=== PATIENT | female | born 1970 | race Caucasian/White ===

== ENCOUNTER 2021-07-19 14:48 | Emergency (ER) | payer OTHER, SELFPAY ==
[~2021-07-19] VITALS: Ht 157.5 cm; Wt 80.7 kg
[2021-07-19 14:49] VITALS: BP 190/88
[2021-07-20] MEDS ORDERED: IBUP-1764 PO (00:02)
== END 2021-07-19 17:00 | disposition left against medical advice (07) ==
LOC: M ED 14:48
DX: Z53.29 Procedure and treatment not carried out because of patient's decision for other reasons (principal)

== ENCOUNTER 2021-07-19 19:41 | Inpatient (IN) | payer BC, OTHER ==
[~2021-07-19] VITALS: Ht 157.5 cm; Wt 84.5 kg
[2021-07-19 23:24] VITALS: BP 154/77
[2021-07-20] MEDS ORDERED: IBUP-1764 PO (00:02)
[2021-07-20] MEDS ORDERED: HOME MED LIST COMPLETE! XX SCH (00:05)
[2021-07-20] MEDS ORDERED: GLUCOSE 4GM CHEW TABLET PO PRN (00:30)
[2021-07-20] MEDS ORDERED: DEXTROSE 50% 50 ML SYRINGE IV PRN (00:30)
[2021-07-20] MEDS ORDERED: VANCOMYCIN HCL 1,000 MG, VIAL MATE ADAPTER 1 EACH in NS 250 ML IV SCH (00:30)
[2021-07-20] MEDS ORDERED: D5W/0.45% SODIUM CHLORIDE 1,000 ML IV SCH (00:30)
[2021-07-20] MEDS ORDERED: GLUCAGON INJ 1MG VIAL SC PRN (00:30)
[2021-07-20] MEDS ORDERED: MAALOX 30 ML SUSP *UDC PO PRN (00:30)
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
[2021-07-20] MEDS: HumaLOG INSULIN (NovoLOG) PER UNIT SC SCH ×5 (01:57→23:31)
[2021-07-20] MEDS: ACETAMINOPHEN TAB 650MG DOSE (2X325MG) PO PRN ×2 (02:38→23:32)
[2021-07-20 03:22] LABS: BASO % 0.2 % (0.0-1.0); EOS % 0.2 % (0.0-3.0); HEMATOCRIT 31.9 % (36.0-47.0); HEMOGLOBIN 10.5 g/dl (12.0-15.5); LYMPH # 0.8 10^3/uL (1.5-5.0); LYMPH % 8.3 % (24.0-44.0); MEAN CORPUSCULAR HEMOGLOBIN 27.9 pg (27.0-33.0); MEAN CORPUSCULAR HGB CONC 32.9 g/dl (32.0-36.5); MEAN CORPUSCULAR VOLUME 84.8 fl (80.0-96.0); MONO # 0.7 10^3/uL (0.0-0.8); MONO % 7.9 % (2.0-8.0); NEUTROPHILS # 7.6 10^3/uL (1.5-8.5); NEUTROPHILS % 82.4 % (36.0-66.0); PLATELET COUNT, AUTOMATED 410 10^3/uL (150-450); RED BLOOD COUNT 3.76 10^6/uL (4.00-5.40); WHITE BLOOD COUNT 9.2 10^3/uL (4.0-10.0)
[2021-07-20 03:35] LABS: HEMOGLOBIN A1c 13.8 %
[2021-07-20] MEDS: VANCOMYCIN HCL 1,000 MG, VIAL MATE ADAPTER 1 EACH in NS 250 ML IV SCH ×3 (04:26→20:52)
[2021-07-20 04:27] LABS: BLOOD UREA NITROGEN 9 MG/DL (7-18); CALCIUM LEVEL 7.9 MG/DL (8.5-10.1); CARBON DIOXIDE LEVEL 30 MEQ/L (21-32); CHLORIDE LEVEL 98 MEQ/L (98-107); CREATININE FOR GFR 0.63 MG/DL (0.55-1.30); FERRITIN 803 NG/ML (8-252); GLOMERULAR FILTRATION RATE > 60.0 (>51); GLUCOSE, FASTING 236 MG/DL (70-100); IRON (FE) 23 UG/DL (50-170); PERCENT SATURATION 15.8 % (13.2-45.0); POTASSIUM SERUM 3.5 MEQ/L (3.5-5.1); SODIUM LEVEL 134 MEQ/L (136-145); TOTAL IRON BINDING CAPACITY 146 UG/DL (250-450)
[2021-07-20 06:00] VITALS: BP 121/70
[2021-07-20] MEDS: ONDANSETRON 4MG/2ML VIAL IV PRN (06:50)
[2021-07-20] MEDS ORDERED: FLUBLOK(EGG FREE)(QUAD)INFLUENZA VACC 0.5ML SYRINGE 18YRS & OLDER IM ONE (09:00)
[2021-07-20] MEDS: LEVEMIR (INSULIN DETEMIR) 1 UNITS/0.01ML SC SCH (09:57)
[2021-07-20] MEDS: ENOXAPARIN 40MG/0.4ML SYRINGE (J1650 PER 10MG) SC SCH (09:57)
--- NOTE | 2021-07-20 10:11 | IPNPDOC ---
Text Note Date of Service The patient was seen on 07/20/21. NOTE Subjective: Patient is a 51-year-old female with a PMHx gestational DM2, who presented as a transfer from [facility] ER with a 3 week history of pr ogressively worsening right foot wound/ulceration. Patient was admitted to the hospitalist service and podiatry was called on consultation this morning. Patient was seen and examined at the bedside. Currently, she denies any chest pain, shortness of breath, palpitations. Reports some nausea. Denies any abdominal discomfort. Reports constipation reported chills at home but has not experienced any fevers. Objective: Vitals (See below) General: Lying in bed, comfortable, AAOx3 HEENT: NC, AT CVS: +S1S2 Lungs: Fair air entry b/l, -w/r/r Abdomen: Soft, ND, NT Extremities: RLE with 1+ pitting edema, LLE without any edema, R foot with dressing in place Imagin07/19/2021 foot x-ray from outside hospital in chart Assessment and plan: Right foot ulcer - Patient has reported ongoing right foot wound for the last 3 weeks - Has not been on any antibiotics as an outpatient - No leukocytosis; CRP significantly elevated - MRSA screen positive - Will get MRI of R foot - c/w Vancomycin; Will add Zosyn - Consulted Podiatry; Case discussed with Dr. León Hyperglycemia - likely 2/2 new onset DM2 - A1c elevated at 13.8 - c/w ISS and Levemir RLE pitting edema - LLE without any significant edema - Will get Duplex US of RLE Normocytic anemia - Iron panel noted - Will star Ferrous sulfate Hyponatremia - likely 2/2 pseudohyponatremia 2/2 elevated glucose - Corrected Na of 135 Class 1 obesity - BMi of 33.2 - Complicating medical care DVT prophylaxis - c/w Lovenox Disposition: - Patient will have MRI completed today and will be evaluated by podiatry Piedad BENOIT, I+O Piedad BENOIT, I+O Laboratory Tests 07/20/21 03:10 Vital Signs Date Time Temp Pulse Resp B/P (MAP) Pulse Ox O2 Delivery O2 Flow Rate FiO2 07/20/21 06:00 99.0 85 18 121/70 (87) 95 Room Air I&O- Last 24 Hours up to 6 AM 07/20/21 06:00 Intake Total 0 ml Balance 0 ml SOURAV HAUSER MD Jul 20, 2021 10:11
[2021-07-20] MEDS: FERROUS SULFATE 325MG TAB PO SCH (11:22)
[2021-07-20] MEDS: PIPERACILLIN/TAZOBACTAM SOD 3.375 GM in D5W MINI-BAG PLUS 50 ML IV SCH ×3 (11:41→23:30)
--- NOTE | 2021-07-20 11:59 | CR ---
CONSULTATION DATE: 07/20/2021 REASON FOR CONSULTATION: Right heel ulcer. HISTORY OF PRESENT ILLNESS: Patsy Liz is a 51-year-old diabetic female who presents to [facility] as a transfer for [place] emergency department with a right heel wound. She estimates it has been present about three weeks. She is not exactly sure. She has numbness in her feet. PAST MEDICAL HISTORY: Significant for diabetes. PAST SURGICAL HISTORY: Inguinal hernia repair, tonsils and adenoids and a throat polyp removal. SOCIAL HISTORY: Denies tobacco and alcohol. FAMILY HISTORY: Positive for diabetes. ALLERGIES: No known drug allergies. REVIEW OF SYSTEMS: She denies nausea, vomiting, fever or chills. LABORATORY DATA: White blood cell count since being at the hospital is 9.2. CRP is 23.6. Hemoglobin A1c is 13.8. Lower extremity examination: On the right side, there is erythema and edema to the right foot and leg. There is a necrotic ulcer to the plantar surface of the heel with purulence within the wound. ASSESSMENT: This is a 51-year-old diabetic female with right heel ulceration, abscess and infection. PLAN: She is to go to the OR today for right heel debridement/incision and drainage. She is on vancomycin and Zosyn. We will take OR cultures.
--- NOTE | 2021-07-20 12:28 | REP ---
INDICATION: RLE swelling COMPARISON: None. TECHNIQUE: Real time compression and duplex Doppler interrogation of the right lower extremity deep venous system is performed, including the left common femoral vein.Compression of the right peroneal and posterior tibial veins is performed. FINDINGS: The right common femoral, superficial femoral and popliteal veins are fully compressible with transducer pressure and demonstrate normal spontaneous and phasic flow, without evidence of deep venous thrombosis.The left common femoral vein demonstrates no thrombus.The visualized right peroneal and posterior tibial veins demonstrate no thrombus. IMPRESSION: No evidence of deep venous thrombosis of the right lower extremity femoral popliteal venous system.The visualized right peroneal and posterior tibial veins demonstrate no thrombus. <Electronically signed by Britton Garcia > 07/20/21 [id number]
[2021-07-20 14:00] VITALS: BP 131/93
--- NOTE | 2021-07-20 14:50 | REP ---
INDICATION: osteomyelitis r/o. COMPARISON: None. TECHNIQUE: Multiple sequences obtained in the axial, coronal and sagittal planes. No IV contrast was administered. FINDINGS: Abnormal marrow signal seen in the posteroinferior calcaneus. There appears to be a large soft tissue ulcer in the adjacent heel. The remaining osseous structures of the right foot demonstrate no marrow signal abnormality. There is diffuse edema in the soft tissues of the foot with likely some associated cellulitis. Mild fluid is seen at the margins of the tibiotalar joint. Tiny amount of fluid is seen surrounding the tendons of the ankle, but there is not significant tenosynovitis. The tendons and ligaments of the ankle appear intact. IMPRESSION: Large ulceration of the soft tissues of the heel. There are findings compatible with osteomyelitis in the posteroinferior calcaneus. No discrete abscess collection is visualized. <Electronically signed by Britton Garcia > 07/20/21 [id number]
[2021-07-20] MEDS ORDERED: LIDOCAINE 2% 100MG/5ML SDV (FOR ANES.) As Ordered ONE (18:00)
[2021-07-20] MEDS ORDERED: ONDANSETRON 4MG/2ML VIAL As Ordered ONE (18:00)
[2021-07-20] MEDS ORDERED: propofoL 200 MG/20 ML VIAL As Ordered ONE (18:00)
[2021-07-20] MEDS ORDERED: MIDAZOLAM INJ 2MG/2ML VIAL (J2250 PER 1MG) As Ordered ONE (18:00)
[2021-07-20] MEDS ORDERED: fentaNYL 100 MCG/2 ML INJECTION (J3010) As Ordered ONE (18:00)
[2021-07-20] MEDS ORDERED: dexameTHASONE 4 MG/ML 1ML VIAL (J1100 PER 1MG) As Ordered ONE (18:00)
[2021-07-20] MEDS ORDERED: BUPIVACAINE HCL 0.5% 10ML VIAL As Ordered ONE (18:03)
[2021-07-20] MEDS ORDERED: LIDOCAINE 1% MDV 20ML VIAL As Ordered ONE (18:03)
[2021-07-20] MEDS ORDERED: ZOSYN 3.375GM VIAL (J2543) As Ordered ONE (18:13)
[2021-07-20] MEDS ORDERED: ONDANSETRON 4MG/2ML VIAL IV PRN (19:50)
[2021-07-20] MEDS ORDERED: LR 1,000 ML IV SCH (19:50)
[2021-07-20] MEDS ORDERED: fentaNYL 100 MCG/2 ML INJECTION (J3010) IV PRN (19:50)
[2021-07-20] MEDS ORDERED: oxyCODONE 5MG TAB PO PRN (19:50)
--- NOTE | 2021-07-20 19:50 | RO ---
OPERATIVE NOTE DATE OF OPERATION: 07/20/2021 PREOPERATIVE DIAGNOSIS: Right heel necrotic ulcer and infection. POSTOPERATIVE DIAGNOSIS: Right heel necrotic ulcer and infection. PROCEDURE: Right heel incision, drainage, and wound debridement. SURGEON: Harshad León DPM [employer]OL FINANCE OFFICER: None. ANESTHESIA: Monitored anesthesia care. PREOPERATIVE INJECTION(S): 20 mL of 1:1 mixture of 1% Lidocaine plain and 0.5% Marcaine plain. ESTIMATED BLOOD LOSS: 50 mL. MATERIALS: None. SPECIMENS: Right heel wound tissue, aerobic and anaerobic cultures. COMPLICATIONS: None. CONDITION: Stable. INDICATIONS FOR PROCEDURE: Patsy Liz is a 51-year-old female who was admitted with a right heel ulceration. The wound was inspected and found to have significant necrotic tissue, erythema, and purulence. The decision was made to bring her to the operating room for operative debridement. DESCRIPTION OF PROCEDURE: The patient, side, and site were identified and marked in the preoperative area. Consent was reviewed and obtained. The risks, complications, and alternatives to the procedure were explained to the patient in detail, and all questions were answered. The patient was brought to the operating on a stretcher in the supine position. Monitored anesthesia care was delivered by the anesthesia team. A preop injection of 20 mL of a 1:1 mixture of 1% Lidocaine plain and 0.5% Marcaine plain was instilled. No tourniquet was applied during the procedure. The wound was inspected. There was black necrotic tissue on the plantar surface of the heel with local erythema and purulence extending distally and proximally. Using a #10 blade, the wound tissue was excised in an excisional fashion including subcutaneous tissue, fat, and fascia. Rongeur was used to remove further nonviable tissue. With tracking along the superior fascia an incision was made along the plantar surface of the arch. Following this, 3000 mL of pulse lavage irrigation fluid was irrigated through the wound. Once no further significant necrotic tissue was noted, the site was packed with saline gauze. The patient was brought to the PACU with vital signs stable and neurovascular status intact. She will be admitted to the floor for continued antibiotics and wound care.
[2021-07-20 20:40] VITALS: BP 136/90
[2021-07-20 21:10] VITALS: BP 140/88
[2021-07-20 22:00] VITALS: BP 138/75
[2021-07-21] VITALS (7 sets, daily range): BP systolic 118–172; BP diastolic 64–93
[2021-07-21] MEDS: VANCOMYCIN HCL 1,000 MG, VIAL MATE ADAPTER 1 EACH in NS 250 ML IV SCH ×2 (03:40→15:26)
[2021-07-21] MEDS: HumaLOG INSULIN (NovoLOG) PER UNIT SC SCH ×4 (05:17→23:41)
[2021-07-21] MEDS: PIPERACILLIN/TAZOBACTAM SOD 3.375 GM in D5W MINI-BAG PLUS 50 ML IV SCH ×4 (05:18→23:41)
[2021-07-21 08:13] LABS: BASO % 0.2 % (0.0-1.0); HEMATOCRIT 28.2 % (36.0-47.0); HEMOGLOBIN 9.5 g/dl (12.0-15.5); LYMPH # 0.6 10^3/uL (1.5-5.0); LYMPH % 4.4 % (24.0-44.0); MEAN CORPUSCULAR HEMOGLOBIN 28.4 pg (27.0-33.0); MEAN CORPUSCULAR HGB CONC 33.7 g/dl (32.0-36.5); MEAN CORPUSCULAR VOLUME 84.4 fl (80.0-96.0); MONO # 0.8 10^3/uL (0.0-0.8); MONO % 6.1 % (2.0-8.0); NEUTROPHILS # 11.8 10^3/uL (1.5-8.5); NEUTROPHILS % 88.3 % (36.0-66.0); PLATELET COUNT, AUTOMATED 398 10^3/uL (150-450); RED BLOOD COUNT 3.34 10^6/uL (4.00-5.40); WHITE BLOOD COUNT 13.4 10^3/uL (4.0-10.0)
[2021-07-21 08:27] LABS: BLOOD UREA NITROGEN 9 MG/DL (7-18); CARBON DIOXIDE LEVEL 28 MEQ/L (21-32); CHLORIDE LEVEL 100 MEQ/L (98-107); CREATININE FOR GFR 0.92 MG/DL (0.55-1.30); GLOMERULAR FILTRATION RATE > 60.0 (>51); GLUCOSE, FASTING 187 MG/DL (70-100); POTASSIUM SERUM 3.4 MEQ/L (3.5-5.1); SODIUM LEVEL 137 MEQ/L (136-145)
[2021-07-21] MEDS ORDERED: POTASSIUM CHLORIDE 10MEQ SR TABLET PO ONE (10:00)
[2021-07-21] MEDS: ENOXAPARIN 40MG/0.4ML SYRINGE (J1650 PER 10MG) SC SCH (10:39)
[2021-07-21] MEDS: LEVEMIR (INSULIN DETEMIR) 1 UNITS/0.01ML SC SCH (10:40)
[2021-07-21] MEDS: FERROUS SULFATE 325MG TAB PO SCH (10:41)
--- NOTE | 2021-07-21 11:35 | IPNPDOC ---
Text Note Date of Service The patient was seen on 07/21/21. NOTE Subjective: Patient is a 51-year-old female with a PMHx gestational DM2, who presented as a transfer from [facility] ER with a 3 week history of pr ogressively worsening right foot wound/ulceration. Patient was admitted to the hospitalist service and podiatry was called on consultation this morning. Patient was seen and examined at the bedside. Patient was that she feels better today. She denies any chest pain, shortness of breath or palpitations. Has reported some nausea yesterday but has resolved today. Has not spent any abdominal pain. Reported that she has had a bowel movement this morning. Objective: Vitals (See below) General: Lying in bed, comfortable, AAOx3 HEENT: NC, AT CVS: +S1S2 Lungs: Fair air entry b/l, no evidence of wheezing, rales or rhonchi Abdomen: Soft, nondistended, nontender Extremities: Right lower extremity with evidence of edema; right foot with dressing in place Imagin07/19/2021 foot x-ray from outside hospital in chart MRI 07/20: Large ulceration of the soft tissues of the heel. There are findings compatible with osteomyelitis in the posteroinferior calcaneus. No discrete abscess collection is visualized. Vascular US 07/20: No evidence of deep venous thrombosis of the right lower extremity femoral popliteal venous system.The visualized right peroneal and posterior tibial veins demonstrate no thrombus. Assessment and plan: Right foot ulcer; without surgical evidence of osteomyelitis - Patient has reported ongoing right foot wound for the last 3 weeks - Patient had a febrile episode yesterday. However, remains afebrile since that point - Has remained hemodynamically stable - Leukocytosis noted this morning; CRP improving - Cultures pending - MRSA screen positive - Imaging noted above - s/p Right heel incision, drainage, and wound debridement with Dr. León on 07/20/2021 - c/w Vancomycin & Zosyn (Day #2) - Podiatry on consultation; appreciate their input Hyperglycemia - likely 2/2 new onset DM2 - A1c elevated at 13.8 - c/w ISS and Levemir RLE pitting edema - LLE without any significant edema - Duplex US of RLE without evidence of clot Normocytic anemia - Iron panel noted - c/w Ferrous sulfate s/p Hyponatremia - likely 2/2 pseudohyponatremia 2/2 elevated glucose Class 1 obesity - BMI of 33.2 - Complicating medical care DVT prophylaxis - c/w Lovenox Disposition: - Awaiting clinical improvement Piedad BENOIT, I+O Piedad BENOIT I+O Laboratory Tests 07/21/21 07:03 Vital Signs Date Time Temp Pulse Resp B/P (MAP) Pulse Ox O2 Delivery O2 Flow Rate FiO2 07/21/21 10:00 98.3 86 16 146/76 (99) 94 Room Air I&O- Last 24 Hours up to 6 AM 07/21/21 06:00 Intake Total 2290 ml Output Total 1575 ml Balance 715 ml SOURAV HAUSER MD Jul 21, 2021 11:35
--- NOTE | 2021-07-21 17:00 | IPN ---
PROGRESS NOTE DATE: 07/21/2021 SUBJECTIVE: The patient is seen and examined at the bedside. She denies overnight complaints. She states a little soreness in her foot. OBJECTIVE: PHYSICAL EXAMINATION: VITAL SIGNS: Vitals are reviewed. She has remained afebrile. EXTREMITIES: Lower extremity examination - erythema and edema are somewhat improved. Wound base is improved. There is some remaining necrotic tissue on the periphery. LABORATORY STUDIES: Labs are reviewed. White blood cell count is 13.4, CRP is 18.5. Gram stain shows gram positive cocci in chains and gram negative rods. Full culture results are pending. Pathology is pending. ASSESSMENT: A 51-year-old female with cellulitis, abscess, osteomyelitis right foot. PLAN: 1. We will plan for a wound consult with Dr. Marquis. 2. Continue empiric antibiotics. 3. Start with Vashe and Hydrofera Blue dressings for now. 4. Heel flow boot ordered.
[2021-07-21] MEDS ORDERED: LOMOTIL 2.5MG/0.025MG TABLET PO ONE (19:35)
[2021-07-21] MEDS: ACETAMINOPHEN TAB 650MG DOSE (2X325MG) PO PRN (21:12)
[2021-07-22] MEDS: VANCOMYCIN HCL 1,000 MG, VIAL MATE ADAPTER 1 EACH in NS 250 ML IV SCH (03:12)
[2021-07-22] MEDS: PIPERACILLIN/TAZOBACTAM SOD 3.375 GM in D5W MINI-BAG PLUS 50 ML IV SCH ×4 (04:53→23:50)
[2021-07-22 06:00] VITALS: BP 133/60
[2021-07-22 06:26] LABS: BASO % 0.3 % (0.0-1.0); EOS # 0.1 10^3/uL (0.0-0.5); EOS % 0.6 % (0.0-3.0); HEMATOCRIT 27.1 % (36.0-47.0); HEMOGLOBIN 8.7 g/dl (12.0-15.5); LYMPH # 1.3 10^3/uL (1.5-5.0); LYMPH % 13.1 % (24.0-44.0); MEAN CORPUSCULAR HEMOGLOBIN 27.9 pg (27.0-33.0); MEAN CORPUSCULAR HGB CONC 32.1 g/dl (32.0-36.5); MEAN CORPUSCULAR VOLUME 86.9 fl (80.0-96.0); MONO % 9.9 % (2.0-8.0); NEUTROPHILS # 7.7 10^3/uL (1.5-8.5); NEUTROPHILS % 75.1 % (36.0-66.0); PLATELET COUNT, AUTOMATED 421 10^3/uL (150-450); RED BLOOD COUNT 3.12 10^6/uL (4.00-5.40); WHITE BLOOD COUNT 10.2 10^3/uL (4.0-10.0)
[2021-07-22] MEDS: HumaLOG INSULIN (NovoLOG) PER UNIT SC SCH ×4 (06:26→23:55)
[2021-07-22 06:36] LABS: C REACTIVE PROTEIN QUANTITATIV 14.5 MG/DL (0.00-0.30); CALCIUM LEVEL 7.6 MG/DL (8.5-10.1); GLOMERULAR FILTRATION RATE 27.7 (>51); POTASSIUM SERUM 3.3 MEQ/L (3.5-5.1)
[2021-07-22] MEDS ORDERED: POTASSIUM CHLORIDE 10MEQ SR TABLET PO ONE (07:30)
[2021-07-22] MEDS: FERROUS SULFATE 325MG TAB PO SCH (07:58)
[2021-07-22] MEDS: NS 1,000 ML IV SCH ×2 (07:58→23:50)
[2021-07-22] MEDS: LACTOBACILLUS ACIDOPHILUS CAP (BACID) PO SCH ×2 (07:58→18:00)
[2021-07-22] MEDS: ONDANSETRON 4MG/2ML VIAL IV PRN ×2 (07:59→16:29)
[2021-07-22] MEDS: ENOXAPARIN 40MG/0.4ML SYRINGE (J1650 PER 10MG) SC SCH ×2 (07:59→08:20)
[2021-07-22] MEDS: LEVEMIR (INSULIN DETEMIR) 1 UNITS/0.01ML SC SCH (08:37)
--- NOTE | 2021-07-22 10:03 | IPNPDOC ---
Text Note Date of Service The patient was seen on 07/22/21. NOTE Subjective: Patient is a 51-year-old female with a PMHx gestational DM2, who presented as a transfer from [facility] ER with a 3 week history of p rogressively worsening right foot wound/ulceration. Patient was admitted to the hospitalist service and podiatry was called on consultation this morning. Patient was seen and examined at the bedside. Patient denies any chest pain, shortness breath, palpitations, reported nausea yesterday that has since resolved. Denies any abdominal discomfort. Yesterday had reported diarrhea today. She has not had any further bowel movements. Patient was that her foot feels relatively fine. Objective: Vitals (See below) General: Patient is sitting up in bed, appears to be comfortable, not in any acute distress, alert and oriented 3 HEENT: Normocephalic and atraumatic CVS: +S1S2 Lungs: Air entry appears to be fair bilaterally without any evidence of Abdomen: Remains soft without any distention or tenderness Extremities: Right lower extremity still reveals some edema, right foot dressing in place Imagin07/19/2021 foot x-ray from outside hospital in chart MRI 07/20: Large ulceration of the soft tissues of the heel. There are findings compatible with osteomyelitis in the posteroinferior calcaneus. No discrete abscess collection is visualized. Vascular US 07/20: No evidence of deep venous thrombosis of the right lower extremity femoral popliteal venous system.The visualized right peroneal and posterior tibial veins demonstrate no thrombus. Assessment and plan: Right foot ulcer; without surgical evidence of osteomyelitis - Patient has reported ongoing right foot wound for the last 3 weeks - Hemodynamically stable / Remains afebrile for 24 hours - Leukocytosis / CRP trending down - Blood cultures 07/20: No growth at 24 hours - Wound cultures 07/20: Strep agalactiae Group B / Providencia Stuarti - MRSA screen positive - Imaging noted above - s/p Right heel incision, drainage, and wound debridement with Dr. León on 07/20/2021 - c/w Vancomycin & Zosyn (Day #3) - Podiatry on consultation; appreciate their input - Will consult infectious disease about adjustment of antibiotics - c/w PT evaluation LANDON - possibly 2/2 pre-renal etiology (2/2 diarrhea), possibly 2/2 intra-renal etiology (2/2 medications 2/2 vancomycin) - Patient's kidney function has increased to 2.0 upfront baseline of 0.6 - Will check urinalysis, urine electrolytes, renal ultrasound - Will avoid nephrotoxic medications - Will start IV fluid hydration Hyperglycemia - likely 2/2 new onset DM2 - A1c elevated at 13.8 - c/w ISS and Levemir RLE pitting edema - LLE without any significant edema - Duplex US of RLE without evidence of clot Normocytic anemia - Iron panel noted - c/w Ferrous sulfate s/p Hyponatremia - likely 2/2 pseudohyponatremia 2/2 elevated glucose Class 1 obesity - BMI of 33.2 - Complicating medical care DVT prophylaxis - c/w Lovenox Disposition: - Awaiting clinical improvement VSPiedad I+O VSPiedad I+O Laboratory Tests 07/22/21 05:48 Vital Signs Date Time Temp Pulse Resp B/P (MAP) Pulse Ox O2 Delivery O2 Flow Rate FiO2 07/22/21 06:00 98.7 88 18 133/60 (84) 95 Room Air I&O- Last 24 Hours up to 6 AM 07/22/21 06:00 Intake Total 1280 ml Output Total 400 ml Balance 880 ml SOURAV HAUSER MD Jul 22, 2021 10:03
[2021-07-22 14:00] VITALS: BP 146/71
--- NOTE | 2021-07-22 15:14 | REP ---
INDICATION: LANDON. COMPARISON: None. TECHNIQUE: Real-time sonographic evaluation of the kidneys is performed. FINDINGS: Renal cortical echogenicity pattern is normal bilaterally and contours are smooth. There is no evidence of hydronephrosis, cyst, mass, or calculus in either kidney. Mildly prominent renal pelvis is noted bilaterally, without caliceal dilatation. The right kidney measures 11.9 x 5.7 x 5.4 cm. Left renal dimensions are 13.1 x 5.6 x 6.7 cm. The urinary bladder is unremarkable. Ureteral jets are not visualized in the urinary bladder with Doppler color evaluation. IMPRESSION: Negative renal ultrasound. <Electronically signed by Britton Garcia > 07/22/21 [id number]
[2021-07-22 17:21] LABS: APPEARANCE, URINE HAZY (CLEAR); BACTERIA, URINE AUTO NEGATIVE (NEGATIVE); BILIRUBIN, URINE AUTO NEGATIVE (NEGATIVE); BLOOD, URINE BLOOD 1+ (NEGATIVE); COLOR, URINE STRAW (YELLOW); GLUCOSE, URINE (UA) AUTO NEGATIVE (NEGATIVE); KETONE, URINE AUTO NEGATIVE (NEGATIVE); LEUKOCYTE ESTERASE, URINE AUTO NEGATIVE (NEGATIVE); NITRITE, URINE AUTO NEGATIVE (NEGATIVE); PROTEIN, URINE AUTO 1+ mg/dL (NEGATIVE); RBC, URINE AUTO 1 /HPF (0-3); SPECIFIC GRAVITY URINE AUTO 1.004 (1.002-1.035); SQUAMOUS EPITHELIAL CELL UR AU 1 /HPF (0-6); UROBILINOGEN, URINE AUTO 0.2 mg/dL (0.0-2.0); WBC, URINE AUTO 4 /HPF (0-3)
[2021-07-22 17:29] LABS: CREATININE,RANDOM URINE 39.7 MG/DL; SODIUM,RANDOM URINE 19 MEQ/L
[2021-07-22 17:46] LABS: OSMOLALITY URINE 104 MOSM/KG (50-1400)
[2021-07-22] MEDS: METOCLOPRAMIDE INJ 10MG/2ML VIAL (J2765 PER 1) IV PRN (18:17)
[2021-07-22 19:59] LABS: CALCIUM LEVEL 8.1 MG/DL (8.5-10.1); CREATININE FOR GFR 2.27 MG/DL (0.55-1.30); PHOSPHORUS LEVEL 3.9 MG/DL (2.5-4.9); POTASSIUM SERUM 3.9 MEQ/L (3.5-5.1)
[2021-07-22 22:00] VITALS: BP 162/82
[2021-07-23] MEDS: METOCLOPRAMIDE INJ 10MG/2ML VIAL (J2765 PER 1) IV PRN ×3 (04:28→23:13)
[2021-07-23] MEDS: HumaLOG INSULIN (NovoLOG) PER UNIT SC SCH ×3 (05:48→19:02)
[2021-07-23] MEDS: PIPERACILLIN/TAZOBACTAM SOD 3.375 GM in D5W MINI-BAG PLUS 50 ML IV SCH ×4 (05:48→23:13)
[2021-07-23 06:00] VITALS: BP 160/84
[2021-07-23 07:04] LABS: BASO % 0.3 % (0.0-1.0); EOS % 0.3 % (0.0-3.0); HEMATOCRIT 25.2 % (36.0-47.0); HEMOGLOBIN 8.2 g/dl (12.0-15.5); LYMPH # 0.9 10^3/uL (1.5-5.0); LYMPH % 10.3 % (24.0-44.0); MEAN CORPUSCULAR HEMOGLOBIN 28.3 pg (27.0-33.0); MEAN CORPUSCULAR HGB CONC 32.5 g/dl (32.0-36.5); MEAN CORPUSCULAR VOLUME 86.9 fl (80.0-96.0); MONO # 0.8 10^3/uL (0.0-0.8); MONO % 9.5 % (2.0-8.0); NEUTROPHILS # 6.8 10^3/uL (1.5-8.5); NEUTROPHILS % 78.2 % (36.0-66.0); PLATELET COUNT, AUTOMATED 414 10^3/uL (150-450); WHITE BLOOD COUNT 8.7 10^3/uL (4.0-10.0)
[2021-07-23 07:28] LABS: C REACTIVE PROTEIN QUANTITATIV 10.6 MG/DL (0.00-0.30); CALCIUM LEVEL 7.5 MG/DL (8.5-10.1); CREATININE FOR GFR 2.41 MG/DL (0.55-1.30); GLOMERULAR FILTRATION RATE 22.4 (>51); POTASSIUM SERUM 3.8 MEQ/L (3.5-5.1)
--- NOTE | 2021-07-23 09:54 | IPNPDOC ---
Text Note Date of Service The patient was seen on 07/23/21. NOTE Subjective: Patient is a 51-year-old female with a PMHx gestational DM2, who presented as a transfer from [facility] with a 3 week history of p rogressively worsening right foot wound/ulceration. Patient was admitted to the hospitalist service and podiatry was called on consultation this morning. Patient was seen and examined at the bedside. Currently denies any chest pain, short of breath, palpitations. Yesterday she was experiencing nausea, however, has resolved today. Denies any diarrhea, or urinary discomfort. Objective: Vitals (See below) General: Patient is sitting up in bed, appears comfortable, not in any acute distress, awake and alert, oriented to person, place and time HEENT: AT, NC CVS: +S1S2 Lungs: There appears to be fair air entry bilaterally without any evidence of crackles, wheezing or rhonchi on auscultation Abdomen: Soft, nondistended, nontender Extremities: Again, RLE reveals pitting edema at 1+, LLE reveals some trace to 1+ now Imagin07/19/2021 foot x-ray from outside hospital in chart MRI 07/20: Large ulceration of the soft tissues of the heel. There are findings compatible with osteomyelitis in the posteroinferior calcaneus. No discrete abscess collection is visualized. Vascular US 07/20: No evidence of deep venous thrombosis of the right lower extremity femoral popliteal venous system.The visualized right peroneal and posterior tibial veins demonstrate no thrombus. Renal US 07/22: Negative renal ultrasound. Assessment and plan: Right foot ulcer; without surgical evidence of osteomyelitis - Patient has reported ongoing right foot wound for the last 3 weeks - Patient has remained hemodynamically stable and there has not been any further fevers noted - s/p Leukocytosis / CRP continues to trend down - Blood cultures 07/20: No growth at 48 hours - Wound cultures 07/20: Strep agalactiae Group B / Providencia Stuarti - MRSA screen positive - Imaging noted above - s/p Right heel incision, drainage, and wound debridement with Dr. León on 07/20/2021 - c/w Zosyn (Day #4); s/p Vancomycin - Podiatry and ID on consultation; appreciate their input - c/w PT evaluation [facility] - possibly 2/2 pre-renal etiology (2/2 diarrhea), possibly 2/2 intra-renal etiology (2/2 medications 2/2 vancomycin) - Cr baseline of 0.6; Creatinine appears to be plateauing - FENA 0.7 - Imaging noted above - Will avoid nephrotoxic medications; gentamicin discontinued - Will reduce IV Fluids Hyperglycemia - likely 2/2 new onset DM2 - A1c elevated at 13.8 - c/w ISS and Levemir RLE pitting edema - LLE without any significant edema - Duplex US of RLE without evidence of clot Normocytic anemia - Iron panel noted - c/w Ferrous sulfate s/p Hyponatremia - likely 2/2 pseudohyponatremia 2/2 elevated glucose Class 1 obesity - BMI of 33.2 - Complicating medical care DVT prophylaxis - c/w Lovenox Disposition: - Awaiting clinical improvement VS,Piedad, I+O VS, Pieadd, I+O Laboratory Tests 07/22/21 18:50 07/23/21 06:44 Vital Signs Date Time Temp Pulse Resp B/P (MAP) Pulse Ox O2 Delivery O2 Flow Rate FiO2 07/23/21 06:00 98.0 87 17 160/84 (109) 96 Room Air I&O- Last 24 Hours up to 6 AM 07/23/21 06:00 Intake Total 1830 ml Balance 1830 ml SOURAV HAUSER MD Jul 23, 2021 09:54
[2021-07-23] MEDS: NS 1,000 ML IV SCH ×2 (10:09→16:02)
[2021-07-23] MEDS: LACTOBACILLUS ACIDOPHILUS CAP (BACID) PO SCH ×2 (10:10→19:01)
[2021-07-23] MEDS: FERROUS SULFATE 325MG TAB PO SCH (10:10)
[2021-07-23] MEDS: LEVEMIR (INSULIN DETEMIR) 1 UNITS/0.01ML SC SCH (10:10)
[2021-07-23] MEDS: DIMETHICONE 2% OINTMENT(VANICREAM) 70GM TUBE TOP SCH (10:22)
[2021-07-23] MEDS: ENOXAPARIN 40MG/0.4ML SYRINGE (J1650 PER 10MG) SC SCH (10:23)
[2021-07-23 14:00] VITALS: BP 159/82
--- NOTE | 2021-07-23 15:49 | CR ---
CONSULTATION DATE: 07/22/2021 REASON FOR CONSULTATION: Asked to consult by Dr. Eugene for evaluation of right heel abscess with a questionable osteomyelitis. HISTORY OF PRESENT ILLNESS: Patsy is a pleasant 51-year-old female who was admitted to [facility] with a three week history of progressively worsening right foot wound with an abscess and pain. She initially noted that she had an ulcer on the heel. She tried [id number] medications without any success. She developed an abscess with worsening brown discharge and ultimately decided to get medical attention. The patient was transferred from [facility]. She was seen in consultation by Dr. León, who took her to the operating room on 07/20/2021 for right heel and necrotic ulcer and infection. The patient was started on intravenous (IV) Zosyn and vancomycin. The wound was debrided. Abscess fluid was sent for culture, which is preliminary positive for Providencia and group B Streptococcus. Patient had nasal PCR positive for methicillin-resistant Staphylococcus aureus (MRSA), but the patient did not know she was an MRSA carrier. She had a low grade temperature on admission, which has resolved. She now has some nausea since yesterday and has some diarrhea since admission. She was found to be diabetic with an HbA1C of 13.8. The patient had noted a 10 pound weight loss. She had numbness in both feet, but does not have a primary care provider and does not usually see a doctor on a regular basis. PAST MEDICAL HISTORY: Significant for: Gestational diabetes. PAST SURGICAL HISTORY: 1. Right inguinal hernia repair. 2. Tonsillectomy and adenoidectomy. 3. Polyp removal from throat. REVIEW OF SYSTEMS: She denies fever, chills or night sweats. She had a 10 pound weight loss. She denied any palpitations. She does complain of some nausea and diarrhea since she is in the hospital, but not prior. She denies any dysuria, hematuria or polyuria. SOCIAL HISTORY: She denies tobacco or alcohol use. 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 She lives at home with her and children, who are 19 and 20. FAMILY HISTORY: Significant for diabetes. Father of alcohol. Mother of breast cancer. ALLERGIES: No known drug allergies. MEDICATIONS: - vancomycin 1 gram IV every 12 hours - piperacillin-tazobactam 3.375 grams every 6 hours - probiotics 1 tablet by mouth twice a day - insulin Levemir 10 units subcutaneous daily - Lovenox 40 mg subcutaneous daily - Zofran as needed - Mylanta as needed - Tylenol as needed - insulin sliding scale LABORATORY DATA: White count 10.2, hemoglobin 8.7, hematocrit 27.1, platelets 421, 75% neutrophils, 13% lymphocytes, 10% monocytes. Sodium 138, potassium 3.3, chloride 103, bicarbonate 29, BUN 13, creatinine 2, which has increased from 0.63, glucose 99, HbA1C 13.3, calcium 7.6. Iron 23, total iron binding capacity (TIBC) 146, iron saturation 15.8, ferratin 803. C-reactive protein (CRP) went from 23.6 to 14.5. Blood cultures two sets were no growth. Wound culture has group B streptococcus and Providencia stuartii. IMAGING DATA: Vascular ultrasound had no evidence of deep venous thrombosis (DVT) of the right lower extremity. MRI had large ulceration of the heel with findings consistent with osteomyelitis of the posteroanterior calcaneus. Renal ultrasound done today for evaluation of elevated creatinine was negative. PHYSICAL EXAMINATION: GENERAL: She is a pleasant female in no acute distress. HEART: Normal S1, S2. No murmurs, rubs or gallops appreciated. LUNGS: Clear. No wheezes, rales or rhonchi. ABDOMEN: Obese, soft, nontender. EXTREMITIES: No clubbing, cyanosis or edema. Right heel with 2+ dorsalis pedis pulse. She has a tattoo on the lateral malleolus. She has a very large necrotic ulcer on the calcaneus measuring at least 7 x 5 cm with some necrotic tissue on the border of the wound. There is no purulent discharge. There is some tenderness. There is still surrounding erythema, especially on the plantar area of the midfoot with cellulitis. There is no exposed bone. IMPRESSION: A 51-year-old female admitted with cellulitis and osteomyelitis of the right calcaneus with polymicrobial nilson, including group B Streptococcus and Providencia. Even though she is an MRSA carrier, there is no MRSA in the wound and vancomycin could be discontinued. The patient has developed acute kidney injury, probably a combination of medication, with vancomycin and elevated vancomycin levels with a trough of 22.7, sepsis and possibly surgery. PLAN: 1. Continue with IV Zosyn at 3.375 grams every 6 hours. If her kidney function continues to worsen, this will need to be adjusted. Left heel has significant skin breakdown with fissures that will end up with another ulcer and therefore, she will needs a moisturizer like Aquaphor or Eucerin. I asked patient to make sure she takes good care of her feet as a diabetic. 2. Discontinue IV vancomycin. There is no MRSA in the wound. 3. As an MRSA carrier, once the wound has healed, it would be a good idea to decolonize the patient with Bactroban nasal cream and Hibiclens body wash, but this can be done as an outpatient. 4- I am not sure about her long-term antibiotic course. It will be decided next week. She probably could be treated with a short course IV antibiotic followed by a highly bioavailable oral antibiotic as an outpatient for 4-6 weeks, but we will decide on that once we decide on her discharge. KAMERON
--- NOTE | 2021-07-23 15:55 | ECHO ---
ECHOCARDIOGRAM DATE OF PROCEDURE: 07/20/2021 Age: 51 Gender: Female Height: 157 cm Weight: 82 kg PATIENT LOCATION: Room 4220. REFERRING PROVIDER: Dereje Licona DO REASON FOR THE STUDY: Pedal edema. MEASUREMENTS: 2D Measurements: IVS 1.2 cm LV 4.8 cm LVPW 1.2 cm LA 2.8 cm Aorta 3.3 cm IVC 2.0 cm Doppler Measurements: Peak velocity across the aortic valve 1.2 m/sec Peak velocity across the LVOT 0.9 m/sec Mitral E 0.75 Mitral A 0.75 with a ratio of 1.0 2D COMMENTS: 1. Normal left ventricular size, wall thickness and normal global left ventricular systolic function. The estimated left ventricular systolic ejection fraction is 60-65%. 2. Normal left atrium. In limited views, the right atrium and right ventricle appear to be mildly enlarged, but the right ventricular free wall seems to be mecca. 3. The atrial septum appeared to be normal without evidence of defect or shunt. 4. Normal aortic root. 5. No pericardial effusion seen. 6. Aortic valve, mitral valve, tricuspid valve and pulmonic valve appear to be normal. The proximal pulmonary artery branches also appear to be normal in size. 7. The inferior vena cava is mildly enlarged. Central venous pressure might be elevated. DOPPLER: No significant valvular abnormalities detected, but trace tricuspid regurgitation. IMPRESSION: 1. Normal global left ventricular systolic function. Assessment of the left ventricular diastolic function appears to be normal. 2. No significant valvular abnormalities detected, but trace tricuspid regurgitation. 3. There are some features of elevated central venous pressure. The inferior vena cava was mildly enlarged. MTDD
[2021-07-23 23:09] VITALS: BP 160/82
[2021-07-24] MEDS: HumaLOG INSULIN (NovoLOG) PER UNIT SC SCH ×5 (00:08→23:57)
[2021-07-24 05:01] LABS: BASO % 0.2 % (0.0-1.0); EOS # 0.1 10^3/uL (0.0-0.5); EOS % 0.9 % (0.0-3.0); HEMATOCRIT 25.4 % (36.0-47.0); HEMOGLOBIN 8.2 g/dl (12.0-15.5); LYMPH # 1.1 10^3/uL (1.5-5.0); LYMPH % 13.1 % (24.0-44.0); MEAN CORPUSCULAR HEMOGLOBIN 27.8 pg (27.0-33.0); MEAN CORPUSCULAR HGB CONC 32.3 g/dl (32.0-36.5); MEAN CORPUSCULAR VOLUME 86.1 fl (80.0-96.0); MONO # 0.7 10^3/uL (0.0-0.8); MONO % 8.3 % (2.0-8.0); NEUTROPHILS # 6.5 10^3/uL (1.5-8.5); NEUTROPHILS % 76.2 % (36.0-66.0); PLATELET COUNT, AUTOMATED 423 10^3/uL (150-450); RED BLOOD COUNT 2.95 10^6/uL (4.00-5.40); WHITE BLOOD COUNT 8.5 10^3/uL (4.0-10.0)
[2021-07-24] MEDS: PIPERACILLIN/TAZOBACTAM SOD 3.375 GM in D5W MINI-BAG PLUS 50 ML IV SCH ×4 (05:05→23:08)
[2021-07-24 05:28] LABS: C REACTIVE PROTEIN QUANTITATIV 8.51 MG/DL (0.00-0.30); CALCIUM LEVEL 7.7 MG/DL (8.5-10.1); CREATININE FOR GFR 2.26 MG/DL (0.55-1.30); GLOMERULAR FILTRATION RATE 24.1 (>51); POTASSIUM SERUM 3.6 MEQ/L (3.5-5.1)
[2021-07-24] MEDS: NS 1,000 ML IV SCH (08:20)
[2021-07-24] MEDS: LACTOBACILLUS ACIDOPHILUS CAP (BACID) PO SCH ×2 (08:21→17:09)
[2021-07-24] MEDS: FERROUS SULFATE 325MG TAB PO SCH (08:21)
[2021-07-24] MEDS: ENOXAPARIN 40MG/0.4ML SYRINGE (J1650 PER 10MG) SC SCH (08:21)
[2021-07-24] MEDS: LEVEMIR (INSULIN DETEMIR) 1 UNITS/0.01ML SC SCH (08:22)
[2021-07-24] MEDS: DIMETHICONE 2% OINTMENT(VANICREAM) 70GM TUBE TOP SCH (08:22)
--- NOTE | 2021-07-24 10:45 | IPNPDOC ---
Text Note Date of Service The patient was seen on 07/24/21. NOTE Subjective: Patient is a 51-year-old female with a PMHx gestational DM2, who presented as a transfer from [facility] ER with a 3 week history of p rogressively worsening right foot wound/ulceration. Patient was admitted to the hospitalist service and podiatry was called on consultation this morning. Patient was seen and examined at the bedside. Patient denies any chest pain, short of breath, palpitations, vomiting, abdominal pain or diarrhea. Patient reports that her right foot is doing better. Reports improvement of nausea. Objective: Vitals (See below) General: Patient sitting up in bed, appears to be comfortable without any acute distress. She is awake and alert, oriented to person, place and time HEENT: Normocephalic and atraumatic CVS: +S1S2 Lungs: Fair air entry bilaterally, auscultation does not reveal crackles, wheezing, rhonchi Abdomen: Again, her abdomen is soft without any appreciated distention or tenderness Extremities: Improvement of RLE edema, R foot with dressing in place; LLE with trace to 1+ pitting edema at foot Imagin07/19/2021 foot x-ray from outside hospital in chart MRI 07/20: Large ulceration of the soft tissues of the heel. There are findings compatible with osteomyelitis in the posteroinferior calcaneus. No discrete abscess collection is visualized. Vascular US 07/20: No evidence of deep venous thrombosis of the right lower extremity femoral popliteal venous system.The visualized right peroneal and posterior tibial veins demonstrate no thrombus. Renal US 07/22: Negative renal ultrasound. Assessment and plan: Right foot ulcer; without surgical evidence of osteomyelitis - Initially presented to ER with worsening right foot ulcer for 3 weeks - Hemodynamically stable and afebrile - s/p Leukocytosis / CRP has been improving - Blood cultures 07/20: No growth at 72 hours - Wound cultures 07/20: Strep agalactiae Group B / Providencia Stuarti - MRSA screen positive - Imaging noted above - s/p Right heel incision, drainage, and wound debridement with Dr. León on 07/20/2021 - c/w Zosyn (Day #5); s/p Vancomycin - Podiatry and ID on consultation; appreciate their input - PT is recommending home with services [facility] - likely 2/2 intra-renal etiology (2/2 medications 2/2 vancomycin) - Cr baseline of 0.6; Creatinine has plateaued - FENA 0.7 - Imaging noted above - Will avoid nephrotoxic medications - Will DC IV Fluids Hyperglycemia - likely 2/2 new onset DM2 - A1c elevated at 13.8 - c/w ISS and Levemir HTN - BP remains slightly elevated - Will DC Fluids - Will start Amlodipine RLE pitting edema - LLE without any significant edema - Duplex US of RLE without evidence of clot Normocytic anemia - Iron panel noted - c/w Ferrous sulfate s/p Hyponatremia - likely 2/2 pseudohyponatremia 2/2 elevated glucose Class 1 obesity - BMI of 33.2 - Complicating medical care DVT prophylaxis - c/w Lovenox Disposition: - Awaiting clinical improvement VS,Piedad, I+O VS, Piedad, I+O Laboratory Tests 07/24/21 04:43 Vital Signs Date Time Temp Pulse Resp B/P (MAP) Pulse Ox O2 Delivery O2 Flow Rate FiO2 07/23/21 23:09 99.2 87 20 160/82 (108) 97 Room Air I&O- Last 24 Hours up to 6 AM 07/24/21 06:00 Intake Total 3260 ml Balance 3260 ml SOURAV HAUSER MD Jul 24, 2021 10:45
[2021-07-24 11:42] VITALS: BP 182/96
[2021-07-24] MEDS ORDERED: CARVedilol 3.125 MG TAB PO SCH (12:15)
[2021-07-24] MEDS ORDERED: SIMETHICONE 80MG CHEW TAB PO PRN (12:30)
[2021-07-24 14:00] VITALS: BP 179/97
[2021-07-24] MEDS ORDERED: **hydrALAZINE HCL** 25 MG TAB PO SCH (14:00)
[2021-07-24] MEDS ORDERED: CARVedilol 3.125 MG TAB PO ONE (14:30)
[2021-07-24] MEDS: **hydrALAZINE HCL** 25 MG TAB PO SCH ×2 (16:30→21:22)
[2021-07-24] MEDS: METOCLOPRAMIDE INJ 10MG/2ML VIAL (J2765 PER 1) IV PRN (21:20)
[2021-07-24] MEDS: CARVedilol 6.25 MG TAB PO SCH (21:21)
[2021-07-24] MEDS: amLODIPine 5 MG TAB PO SCH (21:21)
[2021-07-24 22:00] VITALS: BP 165/81
[2021-07-25] MEDS: **hydrALAZINE HCL** 25 MG TAB PO SCH ×3 (05:49→21:30)
[2021-07-25] MEDS: PIPERACILLIN/TAZOBACTAM SOD 3.375 GM in D5W MINI-BAG PLUS 50 ML IV SCH ×2 (05:49→12:07)
[2021-07-25] MEDS: METOCLOPRAMIDE INJ 10MG/2ML VIAL (J2765 PER 1) IV PRN ×2 (05:50→14:13)
[2021-07-25] MEDS: HumaLOG INSULIN (NovoLOG) PER UNIT SC SCH ×3 (06:00→18:42)
[2021-07-25 06:10] VITALS: BP 192/88
[2021-07-25 06:23] LABS: BASO % 0.3 % (0.0-1.0); EOS # 0.1 10^3/uL (0.0-0.5); EOS % 1.1 % (0.0-3.0); HEMATOCRIT 27.8 % (36.0-47.0); HEMOGLOBIN 8.9 g/dl (12.0-15.5); LYMPH % 11.6 % (24.0-44.0); MEAN CORPUSCULAR HEMOGLOBIN 27.8 pg (27.0-33.0); MEAN CORPUSCULAR VOLUME 86.9 fl (80.0-96.0); MONO # 0.7 10^3/uL (0.0-0.8); MONO % 7.3 % (2.0-8.0); NEUTROPHILS # 6.9 10^3/uL (1.5-8.5); NEUTROPHILS % 77.7 % (36.0-66.0); PLATELET COUNT, AUTOMATED 468 10^3/uL (150-450); WHITE BLOOD COUNT 8.9 10^3/uL (4.0-10.0)
[2021-07-25 06:41] LABS: C REACTIVE PROTEIN QUANTITATIV 6.43 MG/DL (0.00-0.30); CALCIUM LEVEL 7.8 MG/DL (8.5-10.1); CREATININE FOR GFR 2.18 MG/DL (0.55-1.30); GLOMERULAR FILTRATION RATE 25.1 (>51); POTASSIUM SERUM 3.6 MEQ/L (3.5-5.1)
[2021-07-25] MEDS: LACTOBACILLUS ACIDOPHILUS CAP (BACID) PO SCH ×2 (08:05→18:41)
[2021-07-25 09:00] VITALS: BP 164/81
--- NOTE | 2021-07-25 10:11 | IPN ---
PROGRESS NOTE DATE: 07/23/2021 SUBJECTIVE: Patient is seen and examined. She denies any pain in her foot. She states the nausea has resolved. Labs are reviewed. White blood cell count is 8.7. CRP is 10.6. Culture results show Group B Strep and Providencia. OBJECTIVE: Lower extremity examination: Erythema and edema are improved. Wound base is inspected and free of any significant necrotic issue or purulence. ASSESSMENT: A 51-year-old diabetic female with cellulitis/abscess/osteomyelitis of the right heel. PLAN: Continue Vashe Wound Dressings. Infectious Disease has been consulted. Patient can be discharged per ID recommendation. She should have a follow-up with Dr. Marquis [facility].
--- NOTE | 2021-07-25 10:18 | IPNPDOC ---
Text Note Date of Service The patient was seen on 07/25/21. NOTE Subjective: Patient is a 51-year-old female with a PMHx gestational DM2, who presented as a transfer from [facility] ER with a 3 week history of p rogressively worsening right foot wound/ulceration. Patient was admitted to the hospitalist service and podiatry was called on consultation this morning. Patient was seen and examined at the bedside. Patient again has had an uneventful night reported some nausea, however, improved from before. Denies any chest pain, shortness breath, palpitations. Denies any abdominal pain, diarrhea, or urinary discomfort. Objective: Vitals (See below) General: Sitting up in bed, appears comfortable, AAOx3 HEENT: AT, NC CVS: +S1S2 Lungs: Air entry appears to be fair bilaterally without any auscultated evidence of crackles, wheezing or rhonchi Abdomen: Soft, ND, NT Extremities: RLE with improvement of edema, LLE trace pitting edema, R foot with dressing in place Imagin07/19/2021 foot x-ray from outside hospital in chart MRI 07/20: Large ulceration of the soft tissues of the heel. There are findings compatible with osteomyelitis in the posteroinferior calcaneus. No discrete abscess collection is visualized. Vascular US 07/20: No evidence of deep venous thrombosis of the right lower extremity femoral popliteal venous system.The visualized right peroneal and posterior tibial veins demonstrate no thrombus. Renal US 07/22: Negative renal ultrasound. Assessment and plan: Right foot ulcer; without surgical evidence of osteomyelitis - Clinically patient appears to have had significant improvement - Remains hemodynamically stable without any fevers documented - s/p Leukocytosis / There has been a continued downtrend of her CRP - Blood cultures 07/20: No growth at 72 hours - Wound cultures 07/20: Strep agalactiae Group B / Providencia Stuarti - MRSA screen positive - Imaging noted above - s/p Right heel incision, drainage, and wound debridement with Dr. León on 07/20/2021 - c/w Zosyn (Day #6); s/p Vancomycin - Podiatry and ID on consultation; appreciate their input - will likely adjust antibiotics today - PT is recommending home with services [facility] - likely 2/2 intra-renal etiology (2/2 medications 2/2 vancomycin) - Cr baseline of 0.6; Creatinine has plateaued - FENA 0.7 - Imaging noted above - Will avoid nephrotoxic medications - s/p IV Fluids Hyperglycemia - likely 2/2 new onset DM2 - A1c elevated at 13.8 - c/w ISS and Levemir HTN - BP remains slightly elevated - s/p Fluids - c/w Amlodipine / Carvedilol; Hydralazine PRN RLE pitting edema - LLE without any significant edema - Duplex US of RLE without evidence of clot Normocytic anemia - Iron panel noted - c/w Ferrous sulfate s/p Hyponatremia - likely 2/2 pseudohyponatremia 2/2 elevated glucose Class 1 obesity - BMI of 33.2 - Complicating medical care DVT prophylaxis - c/w Lovenox Disposition: - Awaiting clinical improvement VS,Piedad, I+O VSPiedad I+O Laboratory Tests 07/25/21 06:11 Vital Signs Date Time Temp Pulse Resp B/P (MAP) Pulse Ox O2 Delivery O2 Flow Rate FiO2 07/25/21 06:10 97.0 95 18 192/88 (122) 95 Room Air I&O- Last 24 Hours up to 6 AM 07/25/21 05:59 Intake Total 1910 ml Balance 1910 ml SOURAV HAUSER MD Jul 25, 2021 10:17
[2021-07-25] MEDS: FERROUS SULFATE 325MG TAB PO SCH (10:20)
[2021-07-25] MEDS: ENOXAPARIN 40MG/0.4ML SYRINGE (J1650 PER 10MG) SC SCH (10:20)
[2021-07-25] MEDS: LEVEMIR (INSULIN DETEMIR) 1 UNITS/0.01ML SC SCH (10:20)
[2021-07-25] MEDS: CARVedilol 6.25 MG TAB PO SCH ×2 (10:21→21:18)
[2021-07-25] MEDS: DIMETHICONE 2% OINTMENT(VANICREAM) 70GM TUBE TOP SCH (10:22)
[2021-07-25] MEDS: amLODIPine 5 MG TAB PO SCH ×2 (10:22→21:18)
[2021-07-25 14:00] VITALS: BP 127/72
--- NOTE | 2021-07-25 16:01 | REP ---
INDICATION: RLE wound / ulcer. COMPARISON: None. TECHNIQUE: Real time garcia scale and Duplex Doppler evaluation of the right lower extremity arterial vasculature using linear high frequency transducer. FINDINGS: The ankle to brachial index of the right lower extremity is 1.1. Duplex doppler interrogation demonstrates normal triphasic wave patterns and normal flow velocities from the common femoral artery through the popliteal and calf arteries. Minimal scattered plaque is seen. PSV(cm/sec) Common femoral artery: 112 cm/s Profunda femoris artery: 91 cm/s Proximal superficial femoral artery: 123 cm/s Mid superficial femoral artery: 124 cm/s Distal superficial femoral artery: 113 cm/s Popliteal artery: 113 cm/s Proximal SARAI: 64 cm/s Tibioperoneal trunk: 111 cm/s Proximal PLUMBING MECHANIC: 84 cm/s Distal PLUMBING MECHANIC: 81 cm/s Distal SARAI: 97 cm/s IMPRESSION: No Duplex Doppler sonographic evidence of hemodynamically significant stenosis of the right lower extremity arterial system. <Electronically signed by Britton Garcia > 07/25/21 [id number]
[2021-07-25] MEDS: CEFDINIR 300 MG CAP (OMNICEF) PO SCH ×2 (21:00→21:18)
[2021-07-25] MEDS: metroNIDAZOLE (FLAGYL) 500MG TABLET PO SCH (21:18)
[2021-07-25] MEDS: HEPARIN SOD (PORCINE) 5000UNITS/ML 1ML VIAL/SYRINGE SQ SCH (21:19)
[2021-07-25] MEDS ORDERED: CEFDINIR 300 MG CAP (OMNICEF) PO ONE (21:30)
[2021-07-25 22:00] VITALS: BP 135/74
[2021-07-26] MEDS: HumaLOG INSULIN (NovoLOG) PER UNIT SC SCH ×4 (00:04→17:27)
[2021-07-26] MEDS: METOCLOPRAMIDE INJ 10MG/2ML VIAL (J2765 PER 1) IV PRN ×3 (00:04→18:24)
[2021-07-26] MEDS: **hydrALAZINE HCL** 25 MG TAB PO SCH ×3 (05:46→22:00)
[2021-07-26] MEDS: HEPARIN SOD (PORCINE) 5000UNITS/ML 1ML VIAL/SYRINGE SQ SCH ×3 (05:51→22:00)
[2021-07-26 06:00] VITALS: BP 140/77
[2021-07-26 06:35] LABS: BASO % 0.4 % (0.0-1.0); EOS # 0.1 10^3/uL (0.0-0.5); EOS % 1.5 % (0.0-3.0); HEMATOCRIT 26.9 % (36.0-47.0); HEMOGLOBIN 8.8 g/dl (12.0-15.5); LYMPH # 1.1 10^3/uL (1.5-5.0); LYMPH % 12.9 % (24.0-44.0); MEAN CORPUSCULAR HEMOGLOBIN 28.1 pg (27.0-33.0); MEAN CORPUSCULAR HGB CONC 32.7 g/dl (32.0-36.5); MEAN CORPUSCULAR VOLUME 85.9 fl (80.0-96.0); MONO # 0.8 10^3/uL (0.0-0.8); MONO % 9.2 % (2.0-8.0); NEUTROPHILS # 6.3 10^3/uL (1.5-8.5); NEUTROPHILS % 74.2 % (36.0-66.0); PLATELET COUNT, AUTOMATED 489 10^3/uL (150-450); RED BLOOD COUNT 3.13 10^6/uL (4.00-5.40); WHITE BLOOD COUNT 8.5 10^3/uL (4.0-10.0)
[2021-07-26 07:00] LABS: C REACTIVE PROTEIN QUANTITATIV 4.25 MG/DL (0.00-0.30); CALCIUM LEVEL 7.7 MG/DL (8.5-10.1); CREATININE FOR GFR 2.03 MG/DL (0.55-1.30); GLOMERULAR FILTRATION RATE 27.3 (>51); POTASSIUM SERUM 3.6 MEQ/L (3.5-5.1)
--- NOTE | 2021-07-26 07:53 | CR ---
ADVANCED WOUND CARE TELEMEDICINE CONSULTATION DATE: 07/25/2021 CONSULT REQUIRED AND REQUESTED BY: Dr. León HISTORY OF PRESENT ILLNESS: [id number]-old neuropathic diabetic female recently diagnosed with diabetes, found to have an extensive right heel wound, Wyman grade 3. This was debrided by Dr. León of podiatry and I have been asked to participate in the patient's postoperative care. PHYSICAL EXAMINATION: On physical examination, there is a wound measuring 5.4 x 6.9 cm encompassing the majority of the right heel. There are areas of granulation tissue; however, there are also areas of fibrin slough and necrotic tissue. No bone appears to be visualized. The patient is afebrile with a white count of 11,000. She is on Zosyn. TREATMENT RECOMMENDATIONS: Clean wound with Vashe wound cleanser for 10 minutes and cover with Hydrofera Blue classic foam. A Heel-Float boot should be obtained and the patient should utilize it while in bed at all times. An arterial ultrasound is required. No indication for IV or oral antibiotics, and the Zosyn may be discontinued. At the time of discharge, please notify the wound care center so that followup arrangements can be made if the patient so desires. Wound care telemedicine provides a visual assessment of a wound without the benefit of physical examination. It can assist with establishing a diagnosis and etiology. This allows for an initial treatment plan. As wounds often change, it may be necessary to modify the original care. Our recommendation is periodic wound reassessment to monitor treatment. Failure to comply may result in nonhealing of the wound, possible complications and/or a poor outcome. The recommendations given will serve as treatment options. As I will not be following this patient, this care plan will require the attending physician to give and sign the orders. Upon discharge, outpatient followup can be scheduled at our wound care center. KAMERON
[2021-07-26] MEDS: metroNIDAZOLE (FLAGYL) 500MG TABLET PO SCH ×3 (10:35→20:37)
[2021-07-26] MEDS: CEFDINIR 300 MG CAP (OMNICEF) PO SCH ×2 (10:35→20:37)
[2021-07-26] MEDS: FERROUS SULFATE 325MG TAB PO SCH (10:35)
--- NOTE | 2021-07-26 10:35 | IPN ---
PROGRESS NOTE DATE: 07/25/2021 SUBJECTIVE: Patsy is a 51-year-old lady who is diagnosed with new onset insulin-dependent diabetes, has right foot ulcer, cellulitis with an abscess and calcaneus osteomyelitis. She had debridement done by Dr. León, culture positive for Providencia and group B Strep and an anaerobe that has not been identified. The patient continues having nausea with soft stools every time she has to urinate. She denies any abdominal pain. Denies any chest pain or shortness of breath. She is anxious to go home. OBJECTIVE: Healthy looking, no acute distress. Heart normal S1, s2, no murmur, rub or gallop. Lungs clear with no wheezes, rhonchi or rales. Abdomen soft, nontender, no hepatosplenomegaly. Right lower extremity with +1 edema, pitting around the foot. Calcaneus ulcer measuring about 6 x 5 cm with some necrotic tissue around the border. There is bloody discharge but no purulent discharge. There is minimal erythema around the ulceration at the debridement site. She is currently day #6 of IV Zosyn. LABS: White count 8.9, hemoglobin 8.9, hematocrit 27.8, platelets 468. 77% neutrophils, 12% lymphocytes. Sodium 140, potassium 3.6, chloride 107, bicarb 25, BUN 12, creatinine 2.18. Glucose 115. Calcium 7.8. CRP 43. One culture group B Strep, Providencia; anaerobic culture pending. Blood cultures are negative x72 hours. ASSESSMENT/PLAN: 1. Diabetic foot ulcer with abscess of the right foot to and calcaneus osteomyelitis, status post I&D with polymicrobial infection. The patient has been on Zosyn for total of 6 days. She will be switched to PO Cefdinir and Metronidazole to cover for anaerobes. In view of the MRI findings suggestive of calcaneus osteomyelitis I would treat her for minimum of 3-4 weeks. That will also depend on wound healing. 2. Acute kidney injury, probably related to medication Vancomycin. Her creatinine was at 0.6. The patient should avoid NSAIDs and nephrotoxic medications. The patient could be discharged home tomorrow on Cefdinir 300 mg PO twice daily and Flagyl 500 mg PO three times a day for two weeks. She can follow up in my office in 1-2 weeks. 3. History of MRSA, nasal colonization. The patient would benefit from decolonization with Hibiclens body wash and Bactroban ointment once the wound has healed.
[2021-07-26] MEDS: CARVedilol 6.25 MG TAB PO SCH ×2 (10:36→20:37)
[2021-07-26] MEDS: amLODIPine 5 MG TAB PO SCH ×2 (10:36→20:37)
[2021-07-26] MEDS: LEVEMIR (INSULIN DETEMIR) 1 UNITS/0.01ML SC SCH (10:37)
[2021-07-26] MEDS: DIMETHICONE 2% OINTMENT(VANICREAM) 70GM TUBE TOP SCH (10:38)
[2021-07-26] MEDS: LACTOBACILLUS ACIDOPHILUS CAP (BACID) PO SCH ×2 (10:45→17:26)
[2021-07-26 14:00] VITALS: BP 131/72
--- NOTE | 2021-07-26 17:24 | IPNPDOC ---
Text Note Date of Service The patient was seen on 07/26/21. NOTE Subjective: -Doing well, asking about potential discharge home. Agreed that we will plan for tomorrow morning with all the recommended hardware scripts for safe discharge Objective: Vitals: See below General: Sitting up in bed, appears comfortable, AAOx3 HEENT: AT, NC CVS: +S1S2 Lungs: Air entry appears to be fair bilaterally without any auscultated evidence of crackles, wheezing or rhonchi Abdomen: Soft, ND, NT Extremities: RLE with edema, LLE trace pitting edema, R foot with dressing in place Labs: reviewed WBC 8.5 Hgb 8.8 Cr 2.03 Imagin07/19/2021 foot x-ray from outside hospital in chart MRI 07/20: Large ulceration of the soft tissues of the heel. There are findings compatible with osteomyelitis in the posteroinferior calcaneus. No discrete abscess collection is visualized. Vascular US 07/20: No evidence of deep venous thrombosis of the right lower extremity femoral popliteal venous system.The visualized right peroneal and posterior tibial veins demonstrate no thrombus. Renal US 07/22: Negative renal ultrasound. Assessment: 51-year-old W who during this hospitalization was diagnosed with new onset insulin-dependent diabetes, has right foot ulcer, cellulitis with an abscess and calcaneus osteomyelitis s/p debridement done by Dr. León with mixed nilson growth for Providencia and group B Strep as well as an anaerobe and has been switched to cefdinir and metronidazole with goal of likely 4w and will prescribe 2w course at discharge with close Dr. Musa follow up. Right foot ulcer, cellulitis with an abscess and calcaneus osteomyelitis s/p debridement done by Dr. León - Clinically significantly improvement - Blood cultures 07/20: No growth at 72 hours - Wound cultures 07/20: Strep agalactiae Group B / Providencia Stuarti - MRSA screen positive - Imaging noted above - s/p Right heel incision, drainage, and wound debridement with Dr. León on 07/20/2021 - s/p Zosyn and Vancomycin now on cefdinir/flagyl - Podiatry and ID on consultation; appreciate recs - PT is recommending home with services with commode and shower chair LANDON - likely 2/2 vancomycin - Cr baseline of 0.6; Creatinine has plateaued now downtrending - Imaging noted above - Will avoid nephrotoxic medications - s/p IV Fluids Hyperglycemia - likely 2/2 new onset DM2 - A1c elevated at 13.8 - c/w ISS and Levemir - consistent carb diet HTN - BP remains slightly elevated - s/p Fluids - c/w Amlodipine / Carvedilol; Hydralazine PRN RLE pitting edema - LLE without any significant edema - Duplex US of RLE without evidence of clot Normocytic anemia - Iron panel noted - c/w Ferrous sulfate s/p Hyponatremia - likely 2/2 pseudohyponatremia 2/2 elevated glucose Class 1 obesity - BMI of 33.2 - Complicating medical care DVT prophylaxis - c/w Lovenox Disposition: -Plan for home dc tomorrow VS,P[place], I+O VS, Chentee, I+O Laboratory Tests 07/26/21 06:05 Vital Signs Date Time Temp Pulse Resp B/P (MAP) Pulse Ox O2 Delivery O2 Flow Rate FiO2 07/26/21 14:00 97.9 83 18 131/72 (91) 95 Room Air I&O- Last 24 Hours up to 6 AM 07/26/21 06:00 Intake Total 1030 ml Output Total 150 ml Balance 880 ml JAVAD GILES MD Jul 26, 2021 17:24
[2021-07-26] MEDS ORDERED: ONDANSETRON 4MG/2ML VIAL IV PRN (18:45)
[2021-07-26] MEDS ORDERED: HumaLOG INSULIN (NovoLOG) PER UNIT SC SCH (21:00)
[2021-07-26 22:00] VITALS: BP 163/80
[2021-07-27 06:00] VITALS: BP 162/81
[2021-07-27] MEDS: HEPARIN SOD (PORCINE) 5000UNITS/ML 1ML VIAL/SYRINGE SQ SCH (06:02)
[2021-07-27] MEDS: **hydrALAZINE HCL** 25 MG TAB PO SCH (06:02)
[2021-07-27] MEDS ORDERED: ALCOPAD25 TOP (09:12)
[2021-07-27] MEDS ORDERED: FERR1TAB8 PO (09:12)
[2021-07-27] MEDS ORDERED: GLUC1TES2 XX (09:12)
[2021-07-27] MEDS ORDERED: NOVOINJ3 SC (09:12)
[2021-07-27] MEDS ORDERED: LEVE1INJ5 SC (09:12)
[2021-07-27] MEDS ORDERED: Dimethicone TOP (09:12)
[2021-07-27] MEDS ORDERED: FLAG500T PO (09:12)
[2021-07-27] MEDS ORDERED: CEFD300CAP PO (09:12)
[2021-07-27] MEDS ORDERED: CARV6.25 PO (09:12)
[2021-07-27] MEDS ORDERED: BLOOKIT21 XX (09:12)
[2021-07-27] MEDS ORDERED: MI-A80CH PO (09:12)
[2021-07-27] MEDS ORDERED: LANC30MI XX (09:12)
[2021-07-27] MEDS ORDERED: AMLO1TAB24 PO (09:12)
[2021-07-27] MEDS ORDERED: RISATAB3 PO (09:12)
[2021-07-27 09:30] LABS: HEMATOCRIT 27.8 % (36.0-47.0); MEAN CORPUSCULAR HGB CONC 32.4 g/dl (32.0-36.5); MEAN CORPUSCULAR VOLUME 86.3 fl (80.0-96.0); PLATELET COUNT, AUTOMATED 481 10^3/uL (150-450); RED BLOOD COUNT 3.22 10^6/uL (4.00-5.40); WHITE BLOOD COUNT 7.8 10^3/uL (4.0-10.0)
[2021-07-27] MEDS: LACTOBACILLUS ACIDOPHILUS CAP (BACID) PO SCH (09:49)
[2021-07-27] MEDS: FERROUS SULFATE 325MG TAB PO SCH (09:49)
[2021-07-27] MEDS: CEFDINIR 300 MG CAP (OMNICEF) PO SCH (09:49)
[2021-07-27] MEDS: metroNIDAZOLE (FLAGYL) 500MG TABLET PO SCH (09:49)
[2021-07-27] MEDS: LEVEMIR (INSULIN DETEMIR) 1 UNITS/0.01ML SC SCH (09:50)
[2021-07-27] MEDS: HumaLOG INSULIN (NovoLOG) PER UNIT SC SCH ×2 (09:50→13:40)
[2021-07-27 09:53] VITALS: BP 148/75
[2021-07-27] MEDS: CARVedilol 6.25 MG TAB PO SCH (09:53)
[2021-07-27 09:59] LABS: CALCIUM LEVEL 7.7 MG/DL (8.5-10.1); CREATININE FOR GFR 1.83 MG/DL (0.55-1.30); GLOMERULAR FILTRATION RATE 30.7 (>51); POTASSIUM SERUM 3.8 MEQ/L (3.5-5.1)
[2021-07-27] MEDS: METOCLOPRAMIDE INJ 10MG/2ML VIAL (J2765 PER 1) IV PRN (09:59)
[2021-07-27] MEDS: DIMETHICONE 2% OINTMENT(VANICREAM) 70GM TUBE TOP SCH (10:01)
--- NOTE | 2021-07-27 12:34 | DS.PDOC ---
Discharge Summary General Date of Admission Jul 19, 2021 at 23:22 Date of Discharge 07/27/2021 Attending Physician: JAVAD GILES MD Discharge Summary PROCEDURES PERFORMED DURING STAY: Right heel incision, drainage, and wound debridement with Dr. León on 07/20/2021 ADMITTING DIAGNOSES: Right foot ulcer, cellulitis with an abscess DISCHARGE DIAGNOSES: Right foot ulcer, cellulitis with an abscess and calcaneus osteomyelitis LANDON likely 2/2 vancomycin New diagnosis of IDDM Newly diagnosed HTN Normocytic anemia with YULI Class 1 obesity COMPLICATIONS/CHIEF COMPLAINT: Diabetic Ulcer, New/Onset Diabetes. HISTORY OF PRESENT ILLNESS: 51-year-old W who was admitted to [facility] with a three week history of progressively worsening right foot wound with an abscess and pain. She initially noted that she had an ulcer on the heel that developed an abscess with worsening brown discharge and ultimately decided to [facility] [place] where she was transferred on 07/19 to [facility] for podiatry evaluation. HOSPITAL COURSE: She was seen in consultation by Dr. León and had debridement on 07/20/2021 for right heel and necrotic ulcer and infection and abscess drainage while on interim empiric vancomycin and piptazo. Abscess fluid was sent for culture, which was preliminary positive for Providencia and group B Streptococcus and also an anaerobic species that has not yet speciated. Her course was c/b an LANDON that was presumed 2/2 vancomycin that was stopped despite having a positive MRSA PCR when she grew nilson that did not include MRSA. The LANDON did improve with discontinuation of vancomycin and continues to improve. her course was also c/b mild diarrhea since beginning antibiotics and she is on probiotic therapy. Of note during this admission, she was also diagnosed with IDDM with an a1c of 13.8 as well as HTN. She was started on a basal bolus insulin regimen with good glycemic control and will be discharged on 10u levemir nightly and to follow her current sliding scale ACHS with the appropriate glucose testing ACHS. She was also started on amlodipine and coreg for HTN with good effect. During her admission podiatry, ID and advanced wound care were on consultation. She is now being discharged on cefdinir/flagyl with a 2 weeks course, but anticipate that she will require an at least 4 week course but will be determined by ID when she follows up in the next 2w. The rest of her hospital course per issue is as below: Assessment: 51-year-old W who during this hospitalization was diagnosed with new onset insulin-dependent diabetes, has right foot ulcer, cellulitis with an abscess and calcaneus osteomyelitis s/p debridement done by Dr. León with mixed nilson growth for Providencia and group B Strep as well as an anaerobe and has been switched to cefdinir and metronidazole with goal of likely 4w and will prescribe 2w course at discharge with close Dr. Musa follow up. Right foot ulcer, cellulitis with an abscess and calcaneus osteomyelitis - Blood cultures 07/20: No growth at 72 hours - Wound cultures 07/20: Strep agalactiae Group B / Providencia Stuarti - MRSA screen positive - s/p Right heel incision, drainage, and wound debridement with Dr. León on 07/20 - s/p Zosyn and Vancomycin now on cefdinir/flagyl and prescribed 2w course with rest of course determined by ID on outpatient follow up. - PT is recommending home with services with commode and shower chair LANDON - likely 2/2 vancomycin - Cr baseline of 0.6; Creatinine has plateaued now downtrending - Imaging noted above - Will avoid nephrotoxic medications - s/p IV Fluids New diagnosis of DM2 - A1c elevated at 13.8 - c/w ISS and Levemir - consistent carb diet HTN - BP remains slightly elevated - c/w Amlodipine / Carvedilol RLE pitting edema - LLE without any significant edema - Duplex US of RLE without evidence of clot Normocytic anemia - Iron panel noted - c/w Ferrous sulfate Hyponatremia - likely 2/2 pseudohyponatremia 2/2 elevated glucose Class 1 obesity - BMI of 33.2 DISCHARGE MEDICATIONS: Please see below. ALLERGIES: Please see below. PHYSICAL EXAMINATION ON DISCHARGE: VITAL SIGNS: Please see below. General: Sitting up in bed, appears comfortable, AAOx3 HEENT: AT, NC CVS: RRR, +S1S2, no m/r/g Lungs: CTAB without crackles, wheezing or rhonchi Abdomen: Soft, ND, NT Extremities: RLE with edema, LLE trace pitting edema, R foot with dressing in place LABORATORY DATA: Please see below. IMAGIN07/19/2021 foot x-ray from outside hospital in chart MRI 07/20: Large ulceration of the soft tissues of the heel. There are findings compatible with osteomyelitis in the posteroinferior calcaneus. No discrete abscess collection is visualized. Vascular US 07/20: No evidence of deep venous thrombosis of the right lower extremity femoral popliteal venous system.The visualized right peroneal and posterior tibial veins demonstrate no thrombus. Renal US 07/22: Negative renal ultrasound. PROGNOSIS: Good ACTIVITY: As tolerated DIET: consistent carb, 2g sodium DISCHARGE PLAN: PCP and wound care within 7d, ID and podiatry within 2w. 2w worth of cefdinir/flagyl, amlodipine and coreg for HTN. 10u of levemir QHS and ACHS SSI with consistent carb, 2g sodium diet. DISPOSITION: Home with home PT if possible DISCHARGE INSTRUCTIONS: PCP and wound care within 7d, ID and podiatry within 2w. 2w worth of cefdinir/flagyl, amlodipine and coreg for HTN. 10u of levemir QHS and ACHS SSI with consistent carb, 2g sodium diet. ITEMS TO FOLLOWUP ON ON OUTPATIENT: IDDM HTN RLE wound and osteomyelitis treatment and care DISCHARGE CONDITION: Stable TIME SPENT ON DISCHARGE: 72 minutes. Vital Signs/I&Os Vital Signs Date Time Temp Pulse Resp B/P (MAP) Pulse Ox O2 Delivery O2 Flow Rate FiO2 07/27/21 06:02 162/81 07/27/21 06:00 98.4 84 18 96 Room Air I&O- Last 24 Hours up to 6 AM 07/27/21 06:00 Intake Total 1520 ml Output Total 1700 ml Balance -180 ml Laboratory Data Labs 24H Laboratory Tests 2 07/26/21 12:10: Bedside Glucose (Misc Panel) 173H 07/26/21 17:11: Bedside Glucose (Misc Panel) 122H 07/26/21 21:39: Bedside Glucose (Misc Panel) 141H 07/27/21 07:54: Bedside Glucose (Misc Panel) 133H FSBS Laboratory Tests Test 07/26/21 12:10 07/26/21 17:11 07/26/21 21:39 07/27/21 07:54 Range/Units Bedside Glucose (Misc Panel) 173 122 141 133 70-105 MG/DL Microbiology Microbiology 07/20/21 Gram Stain - Final, Complete 07/20/21 Wound Culture - Final, Complete Strep Agalactiae Group B Providencia Stuartii 07/20/21 Anaerobic Culture - Final, Complete Prevotella Bivia 07/20/21 Blood Culture - Final, Complete NO GROWTH AFTER 5 DAYS 07/20/21 Blood Culture - Final, Complete NO GROWTH AFTER 5 DAYS Discharge Medications Scheduled Amlodipine Besylate (Amlodipine Besylate) 5 Mg Tablet, 5 MG PO BID Blood Sugar Diagnostic (Advanced Glucose Test Strips) 1 Each Strip, 1 STRIP XX ASDIRECTED Carvedilol (Carvedilol) 6.25 Mg Tablet, 6.25 MG PO BID Cefdinir (Cefdinir) 300 Mg Capsule, 300 MG PO BID Ferrous Sulfate (Ferrous Sulfate) 325 Mg Tablet, 325 MG PO DAILY Insulin Aspart (Novolog Flexpen) 100 Unit/1 Ml Insuln.pen, 1 UNITS SC ACHS Insulin Detemir (Levemir Flextouch) 100 Unit/1 Ml Insuln.pen, 100 UNIT SC QHS L.acidoph/L.bulg/B.bif/S.therm (Maria Del Rosario-Bid Caplet) 1 Each Tablet, 1 EA PO BIDWM Metronidazole (Flagyl) 500 Mg Tablet, 500 MG PO TID [Dimethicone] 1 DOSE/70 GM OINT, 0 DOSE TOP DAILY Scheduled PRN Simethicone (Mi-Acid) 80 Mg Tab.chew, 80 MG PO Q8HP PRN for GAS PAIN Allergies Coded Allergies: No Known Allergies (Verified , 05/18/03) JAVAD GILES MD Jul 27, 2021 09:49
== END 2021-07-27 14:00 | disposition home health service (06) | DRG 380 ==
LOC: UNDOADMIN 23:22 → EEVIPCON 23:22 → M MSPAV 23:22
PROVIDERS: ADMIT Internal Medicine; ATTEND Internal Medicine
PROC: 0JBQ0ZZ Excision of Right Foot Subcutaneous Tissue and Fascia, Open Approach (ICD-10-PCS; principal; 2021-07-20 18:41)
DX: L97.418 Non-pressure chronic ulcer of right heel and midfoot with other specified severity (principal); E11.621 Type 2 diabetes mellitus with foot ulcer; N17.9 Acute kidney failure, unspecified; I10 Essential (primary) hypertension; D50.9 Iron deficiency anemia, unspecified; E11.69 Type 2 diabetes mellitus with other specified complication; M86.8X7 Other osteomyelitis, ankle and foot; L03.115 Cellulitis of right lower limb; E87.1 Hypo-osmolality and hyponatremia; Z68.33 Body mass index [BMI] 33.0-33.9, adult; Z90.49 Acquired absence of other specified parts of digestive tract; R60.0 Localized edema; B95.1 Streptococcus, group B, as the cause of diseases classified elsewhere

== ENCOUNTER 2021-08-21 09:40 | Emergency (ER) | payer BC, OTHER ==
[~2021-08-21] VITALS: Ht 157.5 cm; Wt 75.0 kg
[~2021-08-21 09:40] MED LIST: ALCOPAD25 TOP; AMLO1TAB24 PO; BLOOKIT21 XX; CARV6.25 PO; CEFD300CAP PO; Dimethicone TOP; FERR1TAB8 PO; FLAG500T PO; GLUC1TES2 XX; IBUP-1764 PO; LANC30MI XX; LEVE1INJ5 SC; MI-A80CH PO; NOVOINJ3 SC; RISATAB3 PO
[2021-08-21] MEDS ORDERED: NS 1,000 ML IV ONE (11:50)
[2021-08-21] MEDS ORDERED: ONDANSETRON 4MG/2ML VIAL IV ONE (11:50)
[2021-08-21 12:19] LABS: BASO % 0.4 % (0.0-1.0); EOS % 0.9 % (0.0-3.0); HEMATOCRIT 33.1 % (36.0-47.0); HEMOGLOBIN 10.8 g/dl (12.0-15.5); LYMPH # 0.7 10^3/uL (1.5-5.0); LYMPH % 15.8 % (24.0-44.0); MEAN CORPUSCULAR HEMOGLOBIN 27.7 pg (27.0-33.0); MEAN CORPUSCULAR HGB CONC 32.6 g/dl (32.0-36.5); MEAN CORPUSCULAR VOLUME 84.9 fl (80.0-96.0); MONO # 0.6 10^3/uL (0.0-0.8); MONO % 11.8 % (2.0-8.0); NEUTROPHILS # 3.3 10^3/uL (1.5-8.5); NEUTROPHILS % 70.9 % (36.0-66.0); PLATELET COUNT, AUTOMATED 329 10^3/uL (150-450); WHITE BLOOD COUNT 4.7 10^3/uL (4.0-10.0)
[2021-08-21] MEDS ORDERED: PROMETHAZINE INJ 25 MG/ML VIAL (J2550) IV ONE (12:50)
[2021-08-21 12:53] LABS: ALBUMIN 3.1 GM/DL (3.2-5.2); ALT/SGPT 10 U/L (12-78); BILIRUBIN,DIRECT 0.1 MG/DL (0.0-0.2); BILIRUBIN,TOTAL 0.5 MG/DL (0.2-1.0); BLOOD UREA NITROGEN 8 MG/DL (7-18); CARBON DIOXIDE LEVEL 28 MEQ/L (21-32); CHLORIDE LEVEL 100 MEQ/L (98-107); CK-MB VALUE MASS < 1.0 NG/ML (<3.6); CPK CREATINE PHOSPHOKINASE 23 U/L (26-192); CREATININE FOR GFR 1.12 MG/DL (0.55-1.30); GLOMERULAR FILTRATION RATE 54.2 (>51); GLUCOSE, FASTING 180 MG/DL (70-100); LIPASE 72 U/L (73-393); MB/CK RELATIVE INDEX 4.35 (< OR =4); POTASSIUM SERUM 3.2 MEQ/L (3.5-5.1); SODIUM LEVEL 140 MEQ/L (136-145); TOTAL PROTEIN 7.1 GM/DL (6.4-8.2); TROPONIN I < 0.02 NG/ML (< 0.10)
[2021-08-21] MEDS ORDERED: KCL 10MEQ/100ML SWI (KRUN) 10 MEQ in IV 1 EA IV ONE (13:00)
[2021-08-21] MEDS ORDERED: POTASSIUM CHLORIDE 10MEQ SR TABLET PO ONE (13:30)
[2021-08-21] MEDS ORDERED: PROTPAK PO (13:46)
[2021-08-21] MEDS ORDERED: PROM25TA12 PO (14:03)
[2021-08-21 14:55] VITALS: BP 159/77
== END 2021-08-21 15:11 | disposition home or self-care (01) ==
LOC: M ED 09:40
DX: R11.2 Nausea with vomiting, unspecified (principal); E11.9 Type 2 diabetes mellitus without complications; I10 Essential (primary) hypertension; K21.9 Gastro-esophageal reflux disease without esophagitis; Z79.4 Long term (current) use of insulin; Z79.899 Other long term (current) drug therapy
CPT/HCPCS: 80048; 80076; 82550; 82553; 83690; 84484; 85025; 96361; 96374; 96375; 99284; J2405